=== PATIENT | male | born 1955 | race Caucasian/White ===

== ENCOUNTER → 2017-04-12 | Outpatient (CLI) | payer OTHER ==
[2017-04-12 09:29] LABS: BASOPHILS # (AUTO) 0.06 10*3/UL; EOSINOPHILS # (AUTO) 0.23 10*3/UL; EOSINOPHILS % (AUTO) 3.8 % (0-8); HEMATOCRIT 45.2 % (42.0-52.0); HEMOGLOBIN 15.3 g/dL (14.0-18.0); LYMPHOCYTES # (AUTO) 2.21 10*3/uL; MEAN CORPUSCULAR HEMOGLOBIN 30.8 PG (27-31); MEAN CORPUSCULAR HGB CONC 33.8 g/dL (33-37); MEAN CORPUSCULAR VOLUME 91.1 FL (80-90); MEAN PLATELET VOLUME 9.7 FL (7.4-12.2); MONOCYTES # (AUTO) 0.79 10*3/UL (0.3-0.8); MONOCYTES % (AUTO) 13.2 % (5-15); NEUTROPHILS # (AUTO) 2.69 10*3/UL; NEUTROPHILS % (AUTO) 44.9 % (50-80); RED BLOOD COUNT 4.96 10^6/uL (4.70-6.10)
[2017-04-12 09:35] LABS: PLATELET MORPHOLOGY COMMENT NORMAL MORPHOLOGY (NORM); RBC MORPHOLOGY COMMENT NORMAL MORPHOLOGY (NORM); WBC MORPHOLOGY COMMENT NORMAL MORPHOLOGY (NORM)
[2017-04-12 09:42] LABS: BLOOD UREA NITROGEN 17 mg/dL (7-22); BUN/CREATININE RATIO 21.25 (6-20); CALCIUM 9.3 mg/dL (8.7-10.7); CHOL/HDL RATIO 5.66 RATIO (0-4.0); EST GLOMERULAR FILTRATION > 60 (>60 ml/min/1.73m(2)); HDL CHOLESTEROL 33 mg/dL (40-150); SERUM ALBUMIN 4.3 g/dL (3.5-4.8); SERUM CHOLESTEROL 187 mg/dL (120-200)
== END ==
LOC: LAB 09:16
PROVIDERS: ATTEND Nurse Practitioner Family
DX: I10 Essential (primary) hypertension (principal); E78.2 Mixed hyperlipidemia
CPT/HCPCS: 36415; 80053; 80061; 85025

== ENCOUNTER 2017-05-27 01:44 | Emergency (ER) | payer OTHER ==
[2017-05-27 01:57] VITALS: RESP 20; TEMP 96.1
[2017-05-27] MEDS ORDERED: MORPHINE SULFATE 4 MG/1 ML IVP ONE (02:01)
[2017-05-27] MEDS ORDERED: NORMAL SALINE 10 ML SYRINGE FLUSH IVP PRN (02:01)
--- NOTE | 2017-05-27 02:09 | PDOC ---
General Adult HPI - General Chief Complaint: General Medical Stated Complaint: PAIN ALL OVER Date Seen by Provider: 05/27/17 Time Seen by Provider: 02:04 - History of Present Illness Initial Comment: Patient is a very nice 61-year-old gentleman who presents to the emergency department with complaints of general malaise substantial flare in his fibromyalgia pain. He states that he started a new couple of vitamin supplements over the last day or 2 and that tonight he's feeling very poorly having some mild diaphoresis and exacerbation of his chronic fibromyalgia type pain and just not feeling right. He denies any anatoliy chest pain or shortness of breath does state that he has little pain in the left arm but he chronically has pain in that arm from his fibromyalgia the pain in his legs bilaterally is substantially increased compared to what is baseline for him. He denies fever or chills he denies anatoliy dysuria though he does believe his urine has smelled weird through the day today he attributed that to his new supplements. He denies any vomiting or diarrhea. He has taken some of his tramadol for pain that has not seemed to help at all. He is taking his other medications as they have been prescribed Have you received a tetanus shot in the past 10 years?: Unknown - Patient Home Medications Home Medications: Home Medications Esomeprazole Magnesium [Nexium] 40 mg PO QD #90 cap 04/09/17 Lisinopril 20 mg PO DAILY #90 tab 04/09/17 Niacin [Niacin Er] 1,000 mg PO QD #90 tab 04/09/17 Pregabalin [Lyrica] 1 cap PO QHS #90 cap 04/09/17 Pregabalin [Lyrica] 150 mg ORAL QD #90 capsule 04/09/17 Tramadol HCl 50 mg PO QID #120 tab 04/09/17 - Patient Allergies Allergies/Adverse Reactions: Allergies Allergy/AdvReac Type Severity Reaction Status Date / Time codeine Allergy Intermediate NAUSEA Verified 05/27/17 01:52 amoxicillin AdvReac Rash Verified 05/27/17 01:52 Past Medical History - heen HEENT History: Denies History Cardiovascular History: Hypertension Respiratory History: Denies History Gastrointestinal History: GERD Genitourinary History: Denies History Endocrine History: Denies History Musculoskeletal History: Fibromyalgia Neurological History: Denies History Blood Disorders: Denies History Psychiatric History: Denies History Male Reproductive History: Denies History Cancer History: Denies History In Past Year Been Physically Harmed or Verbally Threatened: No History of MDRO: No Tobacco Use: Former Smoker Alcohol Use: Rarely Substance Use Type: None Previous Surgical History: Yes Type / Date of Surgery: RIGHT KNEE SCOPE. HERNIA REPAIR Significant Family History: No pertinent family hx Past Medical History Reviewed: Reviewed - No Changes ROS - Limitations ROS Limitations: No Limitations Constitution: REPORTS: Diaphoresis. DENIES: Chills, Fever Cardiovascular: DENIES: Chest Pain Respiratory: REPORTS: Denies Resp Symptoms General Adult Exam - General Appearance General Appearance: POSITIVE: Alert, Cooperative, No Acute Distress - HEENT HEENT: POSITIVE: Head Inspection Nml, Eyes Inspection Nml, Ears Inspection Nml - Respiratory Respiratory: POSITIVE: No Respiratory Distress, Breath Sounds Normal - Cardiovascular Cardiovascular: POSITIVE: Regular Rate & Rhythm, No Murmur - Abdomen Abdomen: Soft: (All Quadrants), Normal Bowel Sounds: (All Quadrants), Denies Tenderness: (All Quadrants) - Back Back: NEGATIVE: CVA Tenderness - Skin Skin: POSITIVE: Normal Color, Warm, Diaphoresis - Extremities Additional Extremities Details: Evaluation of his extremities show some increased tenderness to outpatient his legs and shoulders he does have a little bit of diaphoresis or sweatiness. - Neurological / Psychological Neurological: POSITIVE: Affect Apporpriate, Oriented X3 General Adult Progress - Results Reviewed by me Lab Results Reviewed: Yes Lab Results:: Laboratory Results 05/27/17 05/27/17 Range/Units 02:15 02:45 WBC 7.23 (4.8-10.8) 10^3/uL RBC 5.09 (4.70-6.10) 10^6/uL Hgb 15.6 (14.0-18.0) g/dL Hct 46.8 (42.0-52.0) % MCV 91.9 H (80-90) FL MCH 30.6 (27-31) PG MCHC 33.3 (33-37) g/dL RDW Std Deviation 43.9 (39-50) fL RDW Coeff of Pasha 13.2 (11.5-14.5) % Plt Count 217 (140-350) 10*3/uL MPV 9.8 (7.4-12.2) FL Immature Gran % (Auto) 0.1 (0-5) % Neut % (Auto) 39.3 L (50-80) % Lymph % (Auto) 42.2 (10-50) % [place] % (Auto) 13.7 (5-15) % Eos % (Auto) 3.7 (0-8) % Baso % (Auto) 1.0 (0-1) % Immature Gran # (Auto) 0.01 10*3/UL Neut # (Auto) 2.84 10*3/UL Lymph # (Auto) 3.05 10*3/uL [place] # (Auto) 0.99 H (0.3-0.8) 10*3/UL Eos # (Auto) 0.27 10*3/UL Baso # (Auto) 0.07 10*3/UL WBC Morphology Comment Normal morphology (NORM) Plt Morphology Comment Normal morphology (NORM) RBC Morph Comment Normal morphology (NORM) Sodium 145 (135-145) meq/L Potassium 3.8 (3.8-5.2) meq/L Chloride 105 (98-112) meq/L Carbon Dioxide 23 (23-33) meq/L Anion Gap 17 (5-20) BUN 20 (7-22) mg/dL Creatinine 0.7 (0.70-1.50) mg/dL Estimated GFR > 60 (>60 ml/min/1.73m(2)) BUN/Creatinine Ratio 28.57 H (6-20) Glucose 96 (78-110) mg/dL Calculated Osmolality 302.0 H (267-292) mOsm/kg Calcium 9.3 (8.7-10.7) mg/dL Total Bilirubin 0.6 (0.3-1.2) mg/dL AST 36 (21-57) IU/L ALT 43 (21-72) IU/L Alkaline Phosphatase 67 (38-126) IU/L Total Creatine Kinase 96 (55-170) IU/L Troponin I < 0.012 (< 0.040) ng/mL Total Protein 7.0 (6.1-8.0) g/dL Albumin 4.4 (3.5-4.8) g/dL Globulin 2.6 (2.50-4.10) g/dL Albumin/Globulin Ratio 1.60 (1.3-2.0) mg/g Ur Collection Type Clean catch urine Urine Color Yellow Urine Clarity Clear (CLEAR) Urine pH 6.0 (5.0-8.5) Ur Specific [place] 1.009 (1.005-1.030) Urine Protein Negative (NEG) mg/dl Urine Glucose (UA) Negative (NEG) mg/dL Urine Ketones Negative (NEG) Urine Occult Blood Trace H (NEG) Urine Nitrate Negative (NEG) Urine Bilirubin Negative (NEG) Urine Urobilinogen 0.2 (0.2) EU/dL Ur Leukocyte Esterase Negative (NEG) Urine RBC Rare (NONE) /hpf Urine WBC None (NONE) Ur Squamous Epith Cells Few (NONE) Ur Renal Epithelial Cell None (NONE) Urine Crystals None Urine Bacteria Rare (NONE) Urine Casts None (NONE) Urine Mucus None (NONE) Urine Trichomonas None (NONE) Urine Yeast None (NONE) Ur Culture Indicated? Culture not set - Patient's Progress MDM / ED Course: Patient is looking well after being monitored in the emergency department for our 2. He is back to his baseline. He's unsure what caused his symptoms. He' s had benign EKG benign labs including troponins he did get a bit of pain relief from a dose of morphine and is definitely feeling better. He is going to stop taking the supplement that he is concerned may be causing him his new symptoms he is also going to follow-up with his primary care provider tomorrow to discuss what happened and to see if any changes in his medication made. Patient Care Time - Estimated PCT Patient Care Time (In Minutes): 40 Vital Signs - Recent Vital Signs Vital Signs: Vital Signs (Last 8 hours) Temp Pulse Resp BP Pulse Ox 05/27/17 01:45 96.1 F L 70 20 144/97 94 05/27/17 01:44 96.1 F L 70 20 144/97 94 - VS Reviewed Vital Signs Reviewed: Yes Discharge Clinical Impression: Fibromyalgia Discharge Disposition: Discharged to Home Condition: Stable Patient Instructions Given at Discharge: Fibromyalgia (ED), Adverse Drug Reaction (ED) Additional Instructions: Stop taking the supplement he recently started in case it is worsening her symptoms Follow-up with your regular doctor in the next 1 day to notify them of your symptoms and for reevaluation Return to the emergency department with any worsening of symptoms any new or different symptoms or any concerns at all Use your currently prescribed medicine as directed Follow Up With: BLAYNE HARTMAN FNP [Primary Care Provider] -
--- NOTE | 2017-05-27 02:12 | EKG ---
[address] [address] Measurements Intervals [place] Rate: 62 P: 50 AL: 159 QRS: 19 QRSD: 92 T: 28 QT: 388 QTc: 393 Interpretive Statements SINUS RHYTHM No previous ECG available for comparison Electronically Signed On 05-27-17 17:04:24 MDT by Jose Hernandez [email or web address]
[2017-05-27 02:24] LABS: BASOPHILS # (AUTO) 0.07 10*3/UL; EOSINOPHILS # (AUTO) 0.27 10*3/UL; EOSINOPHILS % (AUTO) 3.7 % (0-8); HEMATOCRIT 46.8 % (42.0-52.0); HEMOGLOBIN 15.6 g/dL (14.0-18.0); LYMPHOCYTES # (AUTO) 3.05 10*3/uL; MEAN CORPUSCULAR HEMOGLOBIN 30.6 PG (27-31); MEAN CORPUSCULAR HGB CONC 33.3 g/dL (33-37); MEAN CORPUSCULAR VOLUME 91.9 FL (80-90); MEAN PLATELET VOLUME 9.8 FL (7.4-12.2); MONOCYTES # (AUTO) 0.99 10*3/UL (0.3-0.8); MONOCYTES % (AUTO) 13.7 % (5-15); NEUTROPHILS # (AUTO) 2.84 10*3/UL; NEUTROPHILS % (AUTO) 39.3 % (50-80); RED BLOOD COUNT 5.09 10^6/uL (4.70-6.10)
[2017-05-27 02:30] LABS: PLATELET MORPHOLOGY COMMENT NORMAL MORPHOLOGY (NORM); RBC MORPHOLOGY COMMENT NORMAL MORPHOLOGY (NORM); WBC MORPHOLOGY COMMENT NORMAL MORPHOLOGY (NORM)
[2017-05-27 02:36] LABS: BLOOD UREA NITROGEN 20 mg/dL (7-22); BUN/CREATININE RATIO 28.57 (6-20); EST GLOMERULAR FILTRATION > 60 (>60 ml/min/1.73m(2))
[2017-05-27 02:37] LABS: CALCIUM 9.3 mg/dL (8.7-10.7); SERUM ALBUMIN 4.4 g/dL (3.5-4.8)
[2017-05-27 02:57] LABS: BILIRUBIN,URINE NEGATIVE (NEG); CLARITY,URINE CLEAR (CLEAR); COLOR,URINE YELLOW; GLUCOSE, URINE (UA) NEGATIVE (NEG); NITRATE,URINE NEGATIVE (NEG); PROTEIN,URINE NEGATIVE (NEG); UROBILINOGEN,URINE 0.2 EU/dL (0.2)
[2017-05-27 03:01] LABS: OCCULT BLOOD,URINE TRACE (NEG)
[2017-05-27 03:02] LABS: BACTERIA,URINE RARE; RBC,URINE RARE /hpf; SQUAMOUS EPITHELIAL CELL,UR FEW; URINE SAMPLE TYPE CLEAN CATCH URINE
== END 2017-05-27 03:47 | disposition home or self-care (01) ==
LOC: ER 01:44
DX: M79.7 Fibromyalgia (principal)
CPT/HCPCS: 80053; 81001; 81003; 82550; 84484; 85025; 93005; 93010; 96374; 99283; J2270

== ENCOUNTER → 2017-05-27 | Outpatient (CLI) | payer OTHER | LOC: MOB LAB 11:55 | PROVIDERS: ATTEND Nurse Practitioner Family | DX: M79.7 Fibromyalgia (principal) | CPT/HCPCS: 36415; 84550; 85652; 86038; 86431 ==